=== PATIENT | female | born 1995 | race Two or more races ===

== ENCOUNTER 2022-01-19 08:15 | Inpatient (IN) | payer OTHER ==
[2022-01-19 09:42] LABS: BASO % 0.4 % (0-2.0); EOS % 0.3 % (0-4.5); HEMATOCRIT 34.8 % (32.4-45.2); HEMOGLOBIN 11.8 GM/dL (10.7-15.3); LYMPH % 21.8 % (8-40); MCH 26.2 pg (25.7-33.7); MCHC 33.9 g/dl (32.0-36.0); MEAN CELL VOLUME 77.1 fl (80-96); NEUT % 72.5 % (42.8-82.8); PLATELET COUNT 273 10^3/uL (134-434); RBC 4.51 M/mm3 (3.60-5.2); WHITE BLOOD COUNT 8.9 K/mm3 (4.0-10.0)
[2022-01-19 09:50] LABS: INR 0.96 (0.83-1.09)
[2022-01-19 09:53] LABS: ACTIVATED PTT 27.3 SECONDS (25.2-36.5)
[2022-01-19 10:05] LABS: BLOOD UREA NITROGEN 7.6 mg/dL (7-18); CALCIUM 8.9 mg/dL (8.5-10.1)
[2022-01-19 10:07] LABS: CREATININE 0.6 mg/dL (0.55-1.3)
[2022-01-19 10:16] VITALS: BMI 41.8
[2022-01-19] MEDS ORDERED: MISOPROSTOL 100 MCG TABLET PV SCH (12:30)
[2022-01-19] MEDS: MISOPROSTOL 100 MCG TABLET PV SCH ×2 (19:30→23:45)
[2022-01-19] MEDS: DEXTROSE 5%-LACTATED RINGERS 1,000 ML IV SCH (19:45)
[2022-01-19] MEDS ORDERED: CITRIC ACID/SODIUM CITRATE 30 ML UNIT-DOSE CUP PO ONE (23:55)
[2022-01-20] MEDS: OXYTOCIN 30 UNITS in 0.9% NS 30 UNIT/500 ML INFUS.BAG IVPB SCH (05:50)
[2022-01-20] MEDS: DEXTROSE 5%-LACTATED RINGERS 1,000 ML IV SCH ×2 (09:45→17:30)
[2022-01-20 13:42] LABS: BASO % 0.2 % (0-2.0); EOS % 0.3 % (0-4.5); HEMATOCRIT 37.2 % (32.4-45.2); LYMPH % 15.6 % (8-40); MCH 24.8 pg (25.7-33.7); MCHC 32.2 g/dl (32.0-36.0); MEAN PLT VOLUME 8.4 fl (7.5-11.1); MONO % 4.4 % (3.8-10.2); NEUT % 79.5 % (42.8-82.8); PLATELET COUNT 294 10^3/uL (134-434); RBC 4.83 M/mm3 (3.60-5.2); RDW 14.9 % (11.6-15.6)
[2022-01-20 13:56] LABS: ALBUMIN 2.4 g/dl (3.4-5.0); BLOOD UREA NITROGEN 5.7 mg/dL (7-18); CALCIUM 8.8 mg/dL (8.5-10.1)
[2022-01-20 13:59] LABS: CREATININE 0.7 mg/dL (0.55-1.3)
[2022-01-20 14:01] LABS: BILIRUBIN,TOTAL 0.6 mg/dL (0.2-1)
[2022-01-20 14:50] LABS: HIV INTERPRETATION NEGATIVE (NEGATIVE)
[2022-01-20] MEDS ORDERED: morphine SULFATE 4 MG/ML VIAL IVPB ONE ×3 (17:39→22:30)
[2022-01-20] MEDS ORDERED: morphine SULFATE 4 MG/ML VIAL ONE ×2 (20:11→22:34)
[2022-01-21] MEDS ORDERED: morphine SULFATE 4 MG/ML VIAL IVPB ONE (04:01)
[2022-01-21] MEDS ORDERED: morphine SULFATE 4 MG/ML VIAL ONE (04:06)
[2022-01-21] MEDS ORDERED: OXYTOCIN 20 UNITS in 0.9% NS 20 UNIT/1,000 ML INFUS.BAG IV ONE ×2 (07:13→10:16)
[2022-01-21] MEDS ORDERED: LIDOCAINE HCL 1% PRESERVATIVE FREE - 30ML VIAL ONE (07:14)
[2022-01-21] MEDS ORDERED: ACETAMINOPHEN 325 MG TABLET (FP) PO PRN (10:10)
[2022-01-21] MEDS ORDERED: BENZOCAINE 28 GM HEMORRHOIDAL OINTMENT TP PRN (10:10)
[2022-01-21] MEDS ORDERED: WITCH HAZEL 50% (TUCKS) 40 PAD/JAR PAD TP PRN (10:10)
[2022-01-21] MEDS ORDERED: BENZOCAINE 20% 57 GM BOTTLE TP PRN (10:10)
[2022-01-21] MEDS ORDERED: IBUPROFEN 600 MG TABLET (FP) PO ONE (10:15)
[2022-01-21] MEDS ORDERED: OXYTOCIN 20 UNITS in 0.9% NS 20 UNIT/1,000 ML INFUS.BAG IV SCH (10:15)
[2022-01-21] MEDS: FERROUS SO4 325 MG TABLET (FP) PO SCH ×2 (12:50→18:04)
[2022-01-21] MEDS: MISOPROSTOL 100 MCG TABLET PV SCH ×2 (19:26→19:27)
[2022-01-21] MEDS: OXYTOCIN 30 UNITS in 0.9% NS 30 UNIT/500 ML INFUS.BAG IVPB SCH (19:28)
[2022-01-21] MEDS: DEXTROSE 5%-LACTATED RINGERS 1,000 ML IV SCH ×3 (19:28→19:29)
[2022-01-22] MEDS: IBUPROFEN 600 MG TABLET (FP) PO PRN ×2 (08:53→13:42)
[2022-01-22] MEDS: FERROUS SO4 325 MG TABLET (FP) PO SCH ×3 (08:53→17:11)
[2022-01-22] MEDS: PRENATAL VITAMINS W/ FOLIC ACID TABLET (FP) PO SCH (09:18)
[2022-01-22 09:50] LABS: BASO % 0.2 % (0-2.0); EOS % 0.1 % (0-4.5); HEMATOCRIT 26.6 % (32.4-45.2); HEMOGLOBIN 8.5 GM/dL (10.7-15.3); LYMPH % 15.8 % (8-40); MCH 25.1 pg (25.7-33.7); MCHC 32.1 g/dl (32.0-36.0); MEAN CELL VOLUME 78.2 fl (80-96); MEAN PLT VOLUME 8.2 fl (7.5-11.1); MONO % 5.9 % (3.8-10.2); PLATELET COUNT 237 10^3/uL (134-434); WHITE BLOOD COUNT 15.4 K/mm3 (4.0-10.0)
[2022-01-22] MEDS ORDERED: SENNOSIDES/DOCUSATE COMBO (SENNA PLUS) TABLET (UD) PO PRN (22:00)
[2022-01-23 08:23] VITALS: BP 99/59; PULSE 80; RESP 14; TEMP 99
[2022-01-23] MEDS: IBUPROFEN 600 MG TABLET (FP) PO PRN (08:25)
[2022-01-23] MEDS: FERROUS SO4 325 MG TABLET (FP) PO SCH ×2 (09:55→12:26)
[2022-01-23] MEDS: PRENATAL VITAMINS W/ FOLIC ACID TABLET (FP) PO SCH (09:55)
== END 2022-01-23 12:30 | disposition home or self-care (01) | DRG 560 ==
LOC: JLDR 08:15 → J3W 01-21 11:00
PROVIDERS: ADMIT Obstetrics & Gynecology Maternal & Fetal Medicine; ATTEND Obstetrics & Gynecology Maternal & Fetal Medicine
PROC: 3E0P7VZ Introduction of Hormone into Female Reproductive, Via Natural or Artificial Opening (ICD-10-PCS; 2022-01-19)
PROC: 3E033VJ Introduction of Other Hormone into Peripheral Vein, Percutaneous Approach (ICD-10-PCS; 2022-01-20)
PROC: 10907ZC Drainage of Amniotic Fluid, Therapeutic from Products of Conception, Via Natural or Artificial Opening (ICD-10-PCS; 2022-01-20)
PROC: 10E0XZZ Delivery of Products of Conception, External Approach (ICD-10-PCS; principal; 2022-01-21)
PROC: 0HQ9XZZ Repair Perineum Skin, External Approach (ICD-10-PCS; 2022-01-21)
DX: O13.4 Gestational [pregnancy-induced] hypertension without significant proteinuria, complicating childbirth (principal); O70.0 First degree perineal laceration during delivery; O99.214 Obesity complicating childbirth; E66.01 Morbid (severe) obesity due to excess calories; Z3A.39 39 weeks gestation of pregnancy; Z37.0 Single live birth
CPT/HCPCS: 36415; 59409; 80048; 80053; 85025; 85610; 85730; 86780; 86850; 86900; 86901; 87389; C9803-CS; U0003; U0005